=== PATIENT | female | born 1970 | race Native Hawaiian/Other Pacific Islander ===

== ENCOUNTER 2017-06-22 09:55 | Outpatient (CLI) | payer OTHER ==
--- NOTE | 2017-06-22 11:43 | Mammography Report ---
Bilateral mammogram: No previous studies available. CAD study utilized. Findings: Predominance adipose tissue bilaterally. 3 mm circumscribed densities are identified at the right breast seen on CC view. There is a 3 mm density identified at outer anterior left breast and mid left breast in the CC view. There is 3 mm density noted at the lower mid right breast. Normal insula. No microcalcifications. Impression: Circumscribed densities identified at the left breast. Comparison with previous studies is recommended. If previous studies are not available spot mag and if necessary sonographic examination advised. BI-RADS CATEGORY: 0 = Needs additional imaging evaluation ACR BI-RADS MAMMOGRAPHIC CODES: 0 = Needs additional imaging evaluation; 1 = Negative; 2 = Benign; 3 = Probably benign; 4 = Suspicious; 5 = Malignant; 6 = Known biopsy-proven malignancy COMMENT: 1. Dense breast tissue, i.e., adenosis, fibrocystic changes, etc., may obscure an underlying neoplasm. 2. Approximately 10% of cancers are not detected with mammography. 3. A negative mammography report should not delay biopsy if a clinically suspicious mass is present. COMMENT: Patient follow-up letters are generated in [employer].
== END 2017-06-22 09:56 | disposition home or self-care (01) ==
LOC: SPVWC 09:55
PROVIDERS: ATTEND Family Medicine
DX: Z12.31 Encounter for screening mammogram for malignant neoplasm of breast (principal)
CPT/HCPCS: 77067

== ENCOUNTER 2017-09-02 14:05 | Outpatient (CLI) | payer OTHER ==
--- NOTE | 2017-09-03 08:32 | Mammography Report ---
BILATERAL DIGITAL DIAGNOSTIC MAMMOGRAM and BILATERAL BREAST ULTRASOUND: 09/02/17 14:05:00 CLINICAL: Recalled for bilateral asymmetries. COMPARISON:06/22/17 screening FINDINGS: Bilateral spot compression views were performed. A single subcentimeter round circumscribed density persists at 9 o'clock in the right breast and a retroareolar asymmetry persists in the left breast. Ultrasound of the right breast demonstrated 2 tiny cysts at 9 o'clock 8 cm from the nipple measuring 3 x 2 x 3 mm and 3 x 2 x 3 mm. No solid mass or shadowing. Ultrasound of the left breast demonstrated mildly dilated retroareolar ducts with no intraductal mass identified. An oval cyst with low level internal echoes is identified retroareolar at 9 o'clock and measures 8 x 4 x 7 mm. IMPRESSION: Bilateral benign cysts and benign left retroareolar duct ectasia. BI-RADS CATEGORY: 2 - - Benign RECOMMENDATION: Routine mammographic screening in one year. ACR BI-RADS MAMMOGRAPHIC CODES: 0 = Needs additional imaging evaluation; 1 = Negative; 2 = Benign; 3 = Probably benign; 4 = Suspicious; 5 = Malignant; 6 = Known biopsy-proven malignancy COMMENT: 1. Dense breast tissue, i.e., adenosis, fibrocystic changes, etc., may obscure an underlying neoplasm. 2. Approximately 10% of cancers are not detected with mammography. 3. A negative mammography report should not delay biopsy if a clinically suspicious mass is present. COMMENT: Patient follow-up letters are generated via our [employer] application.
== END 2017-09-02 14:06 | disposition home or self-care (01) ==
LOC: SPVWC 14:05
PROVIDERS: ATTEND Family Medicine
DX: N60.01 Solitary cyst of right breast (principal); N60.02 Solitary cyst of left breast; N60.42 Mammary duct ectasia of left breast; N64.89 Other specified disorders of breast
CPT/HCPCS: 77066